=== PATIENT | female | born 1980 | race Asian ===

== ENCOUNTER 2022-11-05 12:30 | Outpatient (CLI) | payer BC, SELFPAY ==
[2022-11-05 13:26] LABS: Basophils Absolute Auto 0.1 K/mm3 (0.0-0.1); Basophils Percent Auto 0.6 % (0.2-1.2); Eosinophils Absolute Auto 0.1 K/mm3 (0-0.3); Eosinophils Percent Auto 0.7 % (0-4.4); Hematocrit 38.6 % (37.0-47.0); Hemoglobin 12.5 g/dL (12.0-15.0); Immature Granulocyte Absolute 0.07 K/mm3 (0.00-0.031); Immature Granulocyte Percent A 0.6 % (0-0.5); Lymphocytes Absolute Auto 2.64 K/mm3 (0.9-3.2); Lymphocytes Percent Auto 21.3 % (18.3-44.2); Mean Corpuscular HGB Conc 32.4 g/dl (32-36); Mean Corpuscular Hemoglobin 28.7 pg (26-34); Mean Corpuscular Volume 88.7 fl (80-100); Mean Platelet Volume 9.2 fl (7.4-10.4); Monocytes Absolute Auto 0.9 K/mm3 (0.1-0.6); Monocytes Percent Auto 7.5 % (2.6-8.5); Neutrophils Absolute Auto 8.6 K/mm3 (1.3-6.7); Neutrophils Percent Auto 69.3 % (45.5-73.1); Platelet Count Result 462 k/mm3 (150-375); Red Blood Count 4.35 M/mm3 (4.2-5.4); Red Cell Distribution Width 13.9 % (11.5-14.5); White Blood Count 12.4 K/mm3 (4.5-10.0)
[2022-11-05 13:36] LABS: Alanine Aminotransferase 29 U/L (6-35); Albumin Level 4.9 g/dL (3.5-5.1); Alkaline Phosphatase 47 U/L (38-126); Anion Gap 9 mmol/L (8-16); Aspartate Amino Transferase 27 U/L (14-36); Bilirubin,Total 0.4 mg/dL (0.2-1.3); Blood Urea Nitrogen 7 mg/dL (7-17); Calcium 9.3 mg/dL (8.4-10.2); Carbon Dioxide 24 mmol/L (22-30); Chloride 102 mmol/L (98-107); Estimated Glomerular Filt Rate > 60; Glucose 89 mg/dL (65-110); Potassium 3.7 mmol/L (3.4-5.0); Sodium 135 mmol/L (137-145)
[2022-11-05 13:37] LABS: Hemoglobin A1C 6.1 % (<5.7)
[2022-11-05 14:18] LABS: HIV 1/2 Ab P24 Ag Result Negative (Negative)
[2022-11-05 14:41] LABS: Hepatitis B Surface Antigen Negative (Negative)
[2022-11-05 16:19] LABS: Rapid Plasma Reagin Non-Reactive (NonReactive)
[2022-11-05 19:56] LABS: Rubella IgG Antibody > 110.0 IU/ML
== END 2022-11-05 12:31 | disposition home or self-care (01) ==
PROVIDERS: Visit Provider Obstetrics & Gynecology
DX: N94.89 Other specified conditions associated with female genital organs and menstrual cycle (principal); E11.9 Type 2 diabetes mellitus without complications
CPT/HCPCS: 36415; 80053; 83036; 84443; 84702; 85025; 86592; 86644; 86703; 86747; 86762; 86787; 86850; 86900; 86901; 87086; 87340; G0432

== ENCOUNTER 2022-11-07 15:46 | Outpatient (CLI) | payer BC, SELFPAY ==
[2022-11-07 16:27] LABS: Total Volume 24 Hour Urine 1250 ml
[2022-11-07 16:28] LABS: Total Volume 24 Hour Urine 1250 ml
[2022-11-07 16:39] LABS: Total Protein Urine 24 Hr 162 mg/24hr (28-141); Total Protein Urine Random 13 mg/dL
[2022-11-07 16:40] LABS: Creatinine 24 Hour Urine 0.6 gm/24 (0.8-1.8); Creatinine Urine 53.5 mg/dL
== END 2022-11-07 15:47 | disposition home or self-care (01) ==
LOC: ANHLAB 15:47
PROVIDERS: Visit Provider Obstetrics & Gynecology
DX: E11.9 Type 2 diabetes mellitus without complications (principal)
CPT/HCPCS: 81050; 82570; 84156

== ENCOUNTER 2023-04-29 21:01 | Observation (INO) | payer BC, MEDICAID, SELFPAY ==
[2023-04-29] VITALS (8 sets, daily range): BP systolic 130–156; BP diastolic 76–95; PULSE 70–84; RESP 18; TEMP 36.9; BMI 27.5
--- NOTE | ~2023-04-29 | US_ITS ---
EXAMINATION: US OB follow up w BPP DATE: 04/29/2023 19:50 INDICATION: Hypertension during third trimester TECHNIQUE: Real-time pelvic ultrasound was performed. The interpreting radiologist was not present fo r the study. COMPARISON: 04/16/2023 FINDINGS: There is a single living fetus in vertex presentation. The placenta is anterior. heart rate is 145 beats per minute (bpm). The amniotic fluid index is 13 cm which is normal (normal range: 8.1 cm t o 24.8 cm). Biophysical profile performed by the technologist: breathing (30 sec sustained breathing in 30 minutes): 2 out of 2 movement (3 gross body movements in 30 minutes): 2 out of 2 tone (one episode of eqebnmq-lsxxrlcmg-vhfprfd limb movement): 2 out of 2 Amniotic fluid pocket (2 cm): 2 out of 2 Total score: 8 out of 8 The following biometric data were obtained: Biparietal diameter (BPD): 8.9 cm; head circumference (HC): 32.3 cm; abdominal circumference (AC): 32 .5 cm; femur length (FL): 7.0 cm. These measurements are concordant. Estimated weight is 2817 g +/- 431 g, which correlates with the 94th percentile when 06/09/2023 is used as estimated date of delivery. As single measurements, these parameters are each equal to the following estimated gestational ages w ith ranges of +/- 2 standard deviations: BPD: 35 weeks 3 days +/- 3 weeks 1 days. HC: 36 weeks 4 days +/- 2 weeks 5 days. AC: 36 weeks 3 days +/- 3 weeks 0 days. FL: 36 weeks 0 days +/- 3 weeks 0 days. estimated gestational age based solely on measurements from this exam is 36 weeks 1 days +/- 2 weeks 4 days. IMPRESSION: 1. Single living fetus in vertex presentation. 2. Biophysical profile 8 out of 8. 3. Normal amniotic fluid index. 4. Estimated weight is 2817 g +/- 431 g, which correlates with the 94th percentile when 06/09/19 24 is used as estimated date of delivery. Reviewed, dictated and finalized at location F. IMPRESSION: 1. Single living fetus in vertex presentation. 2. Biophysical profile 8 out of 8. 3. Normal amniotic fluid index. 4. Estimated weight is 2817 g +/- 431 g, which correlates with the 94th p ercentile when 06/09/2023 is used as estimated date of delivery.
[2023-04-29 19:17] LABS: Appearance Urine Clear (Clear); Basophils Percent Auto 0.5 % (0.2-1.2); Bilirubin Urine Negative (Negative); Blood Urine Negative (Negative); Color Urine Yellow (Yellow); Eosinophils Absolute Auto 0.1 K/mm3 (0-0.3); Eosinophils Percent Auto 0.7 % (0-4.4); Glucose Urine UA Negative (Negative); Hematocrit 36.9 % (37.0-47.0); Hemoglobin 11.8 g/dL (12.0-15.0); Immature Granulocyte Absolute 0.07 K/mm3 (0.00-0.031); Immature Granulocyte Percent A 0.8 % (0-0.5); Ketones Urine Negative (Negative); Leukocyte Esterase Ur Negative LEU/UL (Negative); Lymphocytes Absolute Auto 2.28 K/mm3 (0.9-3.2); Lymphocytes Percent Auto 26.1 % (18.3-44.2); Mean Corpuscular Hemoglobin 28.9 pg (26-34); Mean Corpuscular Volume 90.4 fl (80-100); Monocytes Absolute Auto 0.8 K/mm3 (0.1-0.6); Neutrophils Absolute Auto 5.5 K/mm3 (1.3-6.7); Neutrophils Percent Auto 62.9 % (45.5-73.1); Nitrate Urine Negative (Negative); Platelet Count Result 282 k/mm3 (150-375); Protein Urine Negative (Negative); Red Blood Count 4.08 M/mm3 (4.2-5.4); Red Cell Distribution Width 14.5 % (11.5-14.5); Specific Grav Ur 1.011 (1.001-1.035); Urobilinogen Urine 0.2 mg/dL (<2.0); White Blood Count 8.8 K/mm3 (4.5-10.0)
[2023-04-29 19:23] LABS: Creatinine Urine 31.5 mg/dL; Total Protein Urine Random 16 mg/dL; Ur Ttl Prot Creatinine Ratio 0.51 mg/mg (0-0.20)
[2023-04-29 19:25] LABS: Add Urine Microscopic? NO
[2023-04-29 19:29] LABS: Alanine Aminotransferase 20 U/L (6-35); Albumin Level 3.7 g/dL (3.5-5.1); Alkaline Phosphatase 88 U/L (38-126); Anion Gap 4 mmol/L (8-16); Aspartate Amino Transferase 25 U/L (14-36); Bilirubin,Total 0.3 mg/dL (0.2-1.3); Blood Urea Nitrogen 9 mg/dL (7-17); Calcium 10.1 mg/dL (8.4-10.2); Carbon Dioxide 21 mmol/L (22-30); Chloride 108 mmol/L (98-107); Estimated Glomerular Filt Rate > 60; Glucose 92 mg/dL (65-110); Potassium 3.7 mmol/L (3.4-5.0); Sodium 133 mmol/L (137-145); Uric Acid 4.2 mg/dL (2.5-7.5)
--- NOTE | 2023-04-29 20:45 | PC.NURSE ---
Dr. Evans called with an update on pt, labs, and blood pressures. Orders received to monitor patient through the night, blood pressures every thirty minutes, GDM diet, blood sugars every four hours, initiate IV access, and continuous monitoring.
--- NOTE | 2023-04-29 20:55 | PM.IMHP ---
H&P: HPI History of Present Illness Date/Time: 04/29/23 20:55 Chief Complaint: elevated BP Narrative: Leticia is a 42yo @ 34.1wks who was sent to L&D after being seen in OB clinic. She was found to have moderate range BPs x2 in office. She reports being sick for the last 1.5wks and feeling very tired and weak and couldn't get out of bed. She has been having headaches. She reports good movement. No ctx, vb, lof. She denies CP, SOB, RUQ pain. Labs show urine P/C ratio or 0.51 today, her BPs on L&D have been 150/90s on L&D. Will plan to admit for further monitoring. Her is complicated by: - Class B DM -- diagnosed 2019; A1c 6.1 (10/2022) --> 7.6 (04/2023) -MFM referral; no-showed/refused care and mfm will no longer see her -pt refused insulin -MFM recommends EKG- ordered (02/18) - AMA; MFM referral-- needs ASA @ 12wks - Non-compliant with care - Pre-eclampsia--- P/C ratio 0.51 Review of Systems Constitutional: Constitutional: Denies chills, Denies fever(s) and Reports headache(s) Eyes: Eyes: Denies change in vision ENT: Reports headache(s) Cardiovascular: Cardiovascular: Denies chest pain and Denies dyspnea Respiratory: Respiratory: Denies dyspnea Gastrointestinal: Gastrointestinal: Denies abdominal pain Genitourinary: Genitourinary: Denies abnormal vaginal bleeding, Denies pelvic pain and Denies vaginal discharge Neurologic: Reports headache(s) Psychiatric: Psychiatric: Denies anxiety and Denies depression [facility] Past Medical History Medical History Gastroenteritis Social History Social History Smoking status: Never smoker Alcohol intake: never Substance use: never Lack of Transportation: No Lack of Food: Never True Current Housing: I Have Housing Concerned About Future Housing: Decline to Answer Difficulty Paying Gas/Electric Bills: Decline to Answer Difficulty Paying for Meds: Decline to Answer Currently Unemployed: Decline to Answer Education: Decline to Answer Difficulty w/ Childcare or Family Care: Decline to Answer Living arrangements: with family Additional living arrangements comments: alone Occupation/Education: occupation Gender identity (if verbalized by the patient): Female Sexual Orientation (if Verbalized by the Patient): Straight or Heterosexual Meds Home Medications and Allergies Home Medications Medication Instructions Recorded Confirmed Type vitamins no.119-iron 1 tablet PO DAILY #90 tabs 12/16/22 04/29/23 Rx fumarate 29 mg-folic acid 1 mg tablet ( 19) aspirin 81 mg tablet,delayed 81 mg PO DAILY 01/20/23 04/29/23 History release (Adult Low Dose Aspirin) Allergies Allergy/AdvReac Type Severity Reaction Status Date / Time No Known Allergies Allergy Verified 04/29/23 17:21 Vital Signs Vital Signs - 24 hr 04/29/23 20:08 04/29/23 20:30 Pulse Rate 70 84 Blood Pressure 130/81 156/94 H Exam Const: General: cooperative, healthy appearing, comfortable and no acute distress Nutritional Appearance: obese Orientation/consciousness: patient oriented x3 Resp: Effort & Inspection: normal respiratory effort Cardio: Rate: regular rate GI: GI Palp: No abdominal tenderness : Other: FHT's: 125's/ mod irvin/ + accels/ occasional mild variable decels - cat 2 TOCO: irregular ctx's Membranes: intact Presentation: cephalic Skin: General skin exam: normal color Neuro: General: patient oriented x3 Extrem: General: normal to inspection Psych: Appearance: grossly normal Affect: normal affect Attitude: cooperative H&P: Results Labs Labs: Short CBC 04/29/23 Range/Units 18:57 WBC 8.8 (4.5-10.0) K/mm3 Hgb 11.8 L (12.0-15.0) g/dL Hct 36.9 L (37.0-47.0) % Plt Count 282 (150-375) k/mm3 BMP 04/29/23 18:57 Sodium 133 L Potassium 3.7 Chloride
[2023-04-29 23:04] LABS: Glucose Point of Care 134 mg/dl (65-105)
--- NOTE | 2023-04-29 23:07 | PC.NURSE ---
Called Dr. Evans to update on contractions, pt states she feels some contractions, no pain. Orders received to continue to monitor pt at this time.
[2023-04-30] VITALS (22 sets, daily range): BP systolic 115–138; BP diastolic 61–80; PULSE 64–77; RESP 16–18; TEMP 36.8–37.1
[2023-04-30 01:52] LABS: Influenza A QL RT-PCR Negative (Negative); Influenza B QL RT-PCR Negative (Negative); RSV RNA, RT-PCR Negative (Negative); SARS-CoV-2 RNA PCR Negative (Negative)
[2023-04-30 03:17] LABS: Glucose Point of Care 98 mg/dl (65-105)
--- NOTE | 2023-04-30 05:25 | PC.NURSE ---
Dr. Evans discussed plan of care with pt, schedule induction on 05/18, NST's twice weekly, and follow-up appointment in the office next week. Orders received to discharge pt after eating this morning aroun 0900.
--- NOTE | 2023-04-30 05:33 | PM.OBPNVD ---
OB - PN: Subj Subjective Date/time seen: 04/30/23 05:25 Narrative: No issues overnight. BPs still in moderate range overnight. Feeling good movements. No ctx, vb, lof. No ARNDT, vision changes, CP, SOB. OB - PN: Obj Data Labs 04/29/23 18:57 04/29/23 18:57 Labs: Laboratory Results - last 24 hr 04/29/23 04/29/23 04/30/23 18:57 23:00 01:02 WBC 8.8 RBC 4.08 L Hgb 11.8 L Hct 36.9 L MCV 90.4 MCH 28.9 MCHC 32.0 RDW 14.5 Plt Count 282 MPV 10.0 Immature Gran % (Auto) 0.8 H Neut % (Auto) 62.9 Lymph % (Auto) 26.1 [place] % (Auto) 9.0 H Eos % (Auto) 0.7 Baso % (Auto) 0.5 Lymph # (Auto) 2.28 [place] # (Auto) 0.8 H Eos # (Auto) 0.1 Baso # (Auto) 0.0 Abs Immat Gran (auto) 0.07 H Absolute Neuts (auto) 5.5 Absolute Nucleated RBC 0.000 Nucleated RBC % 0.0 Sodium 133 L Potassium 3.7 Chloride 108 H Carbon Dioxide 21 L Anion Gap 4 L BUN 9 Creatinine 0.40 L Estim Creat Clear Calc Not Reportable Estimated GFR > 60 Glucose 92 POC Capillary Glucose 134 H Uric Acid 4.2 Calcium 10.1 Total Bilirubin 0.3 AST 25 ALT 20 Alkaline Phosphatase 88 Total Protein 7.0 Albumin 3.7 Urine Color Yellow Urine Appearance Clear Urine pH 7.0 Ur Specific [place] 1.011 Urine Protein Negative Urine Glucose (UA) Negative Urine Ketones Negative Ur Blood (Man) Negative Urine Nitrate Negative Urine Bilirubin Negative Urine Urobilinogen 0.2 Leukocyte Esterase Rfl Negative U Random Total Protein 16 Urine Creatinine 31.5 Protein/Creat Ratio 2 0.51 H Influenza A (RT-PCR) Negative Influenza B (RT-PCR) Negative RSV (RT-PCR) Negative SARS-CoV-2 RNA (RT-PCR) Negative 04/30/23 03:11 WBC RBC Hgb Hct MCV MCH MCHC RDW Plt Count MPV Immature Gran % (Auto) Neut % (Auto) Lymph % (Auto) [place] % (Auto) Eos % (Auto) Baso % (Auto) Lymph # (Auto) [place] # (Auto) Eos # (Auto) Baso # (Auto) Abs Immat Gran (auto) Absolute Neuts (auto) Absolute Nucleated RBC Nucleated RBC % Sodium Potassium Chloride Carbon Dioxide Anion Gap BUN Creatinine Estim Creat Clear Calc Estimated GFR Glucose POC Capillary Glucose 98 Uric Acid Calcium Total Bilirubin AST ALT Alkaline Phosphatase Total Protein Albumin Urine Color Urine Appearance Urine pH Ur Specific [place] Urine Protein Urine Glucose (UA) Urine Ketones Ur Blood (Man) Urine Nitrate Urine Bilirubin Urine Urobilinogen Leukocyte Esterase Rfl U Random Total Protein Urine Creatinine Protein/Creat Ratio 2 Influenza A (RT-PCR) Influenza B (RT-PCR) RSV (RT-PCR) SARS-CoV-2 RNA (RT-PCR) Imaging Radiologist's impression: Impressions Obstetrical Follow-Up 04/29/23 20:06 IMPRESSION: 1. Single living fetus in vertex presentation. 2. Biophysical profile 8 out of 8. 3. Normal amniotic fluid index. 4. Estimated weight is 2817 g +/- 431 g, which correlates with the 94th percentile when 06/09/2023 is used as estimated date of delivery. OB - PN A/P Assessment and Plan (1) Pre-eclampsia: Qualifiers: Trimester: third trimester Qualified Code(s): O14.93 - Unspecified pre-eclampsia, third trimester Code(s): O14.90 - Unspecified pre-eclampsia, unspecified trimester Status: Acute Assessment and Plan: - BPs noted to be in the moderate range, no severe range - labs stable, except urine P/C ratio of 0.51 - Pt currently asymptomatic - will once again will set up twice weekly NST w/ weekly BPP/labs (to come on Thursday for NST/labs, for NST/BPP)-- discussed the importance of monitoring her and baby VERY closely until IOL on 05/19/23 (cervidil followed by low dose pitocin)-- pt voiced understanding and that she is worried about her blood pressure and will for sure come to all appts - wi
--- NOTE | 2023-04-30 08:32 | OBADM ---
This patient, Leticia Dolan, admitted to the OB room OB Post 116 for observation. Patient/family oriented to hospital policies and general routines including ID bracelet, bed and alarms, visiting hours, pain management, procedures, bathroom and other care routines, personal items, smoking policy, room service/diet, and visiting hours. Patient/Family are encouraged to report perceived risks to care and to ask questions if they do not understand what they are told or what they should do.
[2023-04-30 09:39] LABS: Glucose Point of Care 92 mg/dl (65-105)
[2023-04-30 10:51] LABS: Glucose Point of Care 102 mg/dl (65-105)
--- NOTE | 2023-05-03 08:31 | PM.OBTRLD ---
OB - Triage/Final Diagnosis Visit Information Comments/Additional reasons for admission: I have assessed the risk for this patient, Leticia Dolan, and determined that she would benefit from observation care. Evaluation Laboratory results: Laboratory Tests 04/29/23 04/29/23 04/30/23 18:57 23:00 01:02 WBC 8.8 RBC 4.08 L Hgb 11.8 L Hct 36.9 L MCV 90.4 MCH 28.9 MCHC 32.0 RDW 14.5 Plt Count 282 MPV 10.0 Immature Gran % (Auto) 0.8 H Neut % (Auto) 62.9 Lymph % (Auto) 26.1 [place] % (Auto) 9.0 H Eos % (Auto) 0.7 Baso % (Auto) 0.5 Lymph # (Auto) 2.28 [place] # (Auto) 0.8 H Eos # (Auto) 0.1 Baso # (Auto) 0.0 Abs Immat Gran (auto) 0.07 H Absolute Neuts (auto) 5.5 Absolute Nucleated RBC 0.000 Nucleated RBC % 0.0 Sodium 133 L Potassium 3.7 Chloride 108 H Carbon Dioxide 21 L Anion Gap 4 L BUN 9 Creatinine 0.40 L Estim Creat Clear Calc Not Reportable Estimated GFR > 60 Glucose 92 POC Capillary Glucose 134 H Uric Acid 4.2 Calcium 10.1 Total Bilirubin 0.3 AST 25 ALT 20 Alkaline Phosphatase 88 Total Protein 7.0 Albumin 3.7 Urine Color Yellow Urine Appearance Clear Urine pH 7.0 Ur Specific [place] 1.011 Urine Protein Negative Urine Glucose (UA) Negative Urine Ketones Negative Ur Blood (Man) Negative Urine Nitrate Negative Urine Bilirubin Negative Urine Urobilinogen 0.2 Leukocyte Esterase Rfl Negative U Random Total Protein 16 Urine Creatinine 31.5 Protein/Creat Ratio 2 0.51 H Influenza A (RT-PCR) Negative Influenza B (RT-PCR) Negative RSV (RT-PCR) Negative SARS-CoV-2 RNA (RT-PCR) Negative 04/30/23 04/30/23 04/30/23 03:11 07:11 09:42 WBC RBC Hgb Hct MCV MCH MCHC RDW Plt Count MPV Immature Gran % (Auto) Neut % (Auto) Lymph % (Auto) [place] % (Auto) Eos % (Auto) Baso % (Auto) Lymph # (Auto) [place] # (Auto) Eos # (Auto) Baso # (Auto) Abs Immat Gran (auto) Absolute Neuts (auto) Absolute Nucleated RBC Nucleated RBC % Sodium Potassium Chloride Carbon Dioxide Anion Gap BUN Creatinine Estim Creat Clear Calc Estimated GFR Glucose POC Capillary Glucose 98 92 102 Uric Acid Calcium Total Bilirubin AST ALT Alkaline Phosphatase Total Protein Albumin Urine Color Urine Appearance Urine pH Ur Specific [place] Urine Protein Urine Glucose (UA) Urine Ketones Ur Blood (Man) Urine Nitrate Urine Bilirubin Urine Urobilinogen Leukocyte Esterase Rfl U Random Total Protein Urine Creatinine Protein/Creat Ratio 2 Influenza A (RT-PCR) Influenza B (RT-PCR) RSV (RT-PCR) SARS-CoV-2 RNA (RT-PCR) Final Diagnosis (1) Pre-eclampsia: Qualifiers: Trimester: third trimester Qualified Code(s): O14.93 - Unspecified pre-eclampsia, third trimester Code(s): O14.90 - Unspecified pre-eclampsia, unspecified trimester Status: Acute (2) Advanced maternal age (AMA) in : Status: Acute (3) Type 2 diabetes mellitus: Qualifiers: Diabetes mellitus fdc insulin use: unspecified fdc insulin use status Code(s): E11.9 - Type 2 diabetes mellitus without complications Status: Acute
== END 2023-04-30 12:39 | disposition home or self-care (01) ==
LOC: ANHOBPP 04-30 08:27 → ANHOBOP 04-30 08:28 → ANHOBPP 04-30 08:28 → ANHLDR 04-30 12:42
PROVIDERS: Admitting Provider Obstetrics & Gynecology; Visit Provider Obstetrics & Gynecology
DX: O14.93 Unspecified pre-eclampsia, third trimester (principal); O09.523 Supervision of elderly multigravida, third trimester; O24.113 Pre-existing type 2 diabetes mellitus, in pregnancy, third trimester; Z3A.34 34 weeks gestation of pregnancy; Z20.822 Contact with and (suspected) exposure to COVID-19
CPT/HCPCS: 36415; 76816; 76819; 80053; 82570; 82948; 84156; 84550; 85025; 87637; 99199; G0378; G0379

== ENCOUNTER 2023-05-15 10:00 | Outpatient (RCR) | payer BC, MEDICAID, SELFPAY ==
[2023-04-16 17:08] LABS: Basophils Percent Auto 0.3 % (0.2-1.2); Eosinophils Percent Auto 0.5 % (0-4.4); Hematocrit 38.1 % (37.0-47.0); Hemoglobin 12.3 g/dL (12.0-15.0); Immature Granulocyte Absolute 0.07 K/mm3 (0.00-0.031); Immature Granulocyte Percent A 0.9 % (0-0.5); Lymphocytes Absolute Auto 1.64 K/mm3 (0.9-3.2); Lymphocytes Percent Auto 20.5 % (18.3-44.2); Mean Corpuscular HGB Conc 32.3 g/dl (32-36); Mean Corpuscular Hemoglobin 28.9 pg (26-34); Mean Corpuscular Volume 89.4 fl (80-100); Mean Platelet Volume 9.3 fl (7.4-10.4); Monocytes Absolute Auto 0.6 K/mm3 (0.1-0.6); Neutrophils Absolute Auto 5.7 K/mm3 (1.3-6.7); Neutrophils Percent Auto 70.8 % (45.5-73.1); Platelet Count Result 355 k/mm3 (150-375); Red Blood Count 4.26 M/mm3 (4.2-5.4); Red Cell Distribution Width 14.4 % (11.5-14.5)
[2023-04-16 17:23] LABS: Alanine Aminotransferase 17 U/L (6-35); Albumin Level 3.8 g/dL (3.5-5.1); Alkaline Phosphatase 82 U/L (38-126); Anion Gap 8 mmol/L (8-16); Aspartate Amino Transferase 21 U/L (14-36); Bilirubin,Total 0.3 mg/dL (0.2-1.3); Blood Urea Nitrogen 5 mg/dL (7-17); Calcium 9.1 mg/dL (8.4-10.2); Carbon Dioxide 19 mmol/L (22-30); Chloride 105 mmol/L (98-107); Estimated Glomerular Filt Rate > 60; Glucose 290 mg/dL (65-110); Potassium 3.5 mmol/L (3.4-5.0); Sodium 132 mmol/L (137-145)
[2023-04-16 17:45] VITALS: BP 111/67; PULSE 82
[2023-04-16 18:04] LABS: HIV 1/2 Ab P24 Ag Result Negative (Negative)
[2023-04-16 22:49] LABS: Hemoglobin A1C 7.6 % (<5.7)
[2023-05-05 09:25] LABS: Basophils Absolute Auto 0.1 K/mm3 (0.0-0.1); Basophils Percent Auto 0.7 % (0.2-1.2); Eosinophils Absolute Auto 0.1 K/mm3 (0-0.3); Hematocrit 38.9 % (37.0-47.0); Hemoglobin 12.3 g/dL (12.0-15.0); Immature Granulocyte Absolute 0.03 K/mm3 (0.00-0.031); Immature Granulocyte Percent A 0.4 % (0-0.5); Lymphocytes Absolute Auto 1.71 K/mm3 (0.9-3.2); Lymphocytes Percent Auto 23.6 % (18.3-44.2); Mean Corpuscular HGB Conc 31.6 g/dl (32-36); Mean Corpuscular Hemoglobin 28.5 pg (26-34); Mean Corpuscular Volume 90.3 fl (80-100); Monocytes Absolute Auto 0.7 K/mm3 (0.1-0.6); Monocytes Percent Auto 9.2 % (2.6-8.5); Neutrophils Absolute Auto 4.7 K/mm3 (1.3-6.7); Neutrophils Percent Auto 65.1 % (45.5-73.1); Platelet Count Result 328 k/mm3 (150-375); Red Blood Count 4.31 M/mm3 (4.2-5.4); Red Cell Distribution Width 14.3 % (11.5-14.5); White Blood Count 7.3 K/mm3 (4.5-10.0)
[2023-05-05 09:37] LABS: Alanine Aminotransferase 18 U/L (6-35); Albumin Level 3.8 g/dL (3.5-5.1); Alkaline Phosphatase 95 U/L (38-126); Anion Gap 9 mmol/L (8-16); Aspartate Amino Transferase 31 U/L (14-36); Bilirubin,Total 0.3 mg/dL (0.2-1.3); Blood Urea Nitrogen 10 mg/dL (7-17); Carbon Dioxide 17 mmol/L (22-30); Chloride 109 mmol/L (98-107); Estimated Glomerular Filt Rate > 60; Glucose 123 mg/dL (65-110); Potassium 3.8 mmol/L (3.4-5.0); Sodium 135 mmol/L (137-145); Uric Acid 4.9 mg/dL (2.5-7.5)
--- NOTE | 2023-05-05 10:05 | PC.NURSE ---
Dr. Evans returned call. Informed of BPs, and tracing update. Labs reviewed in office. June D/C home.
[2023-05-05 10:06] VITALS: BP 121/61; PULSE 69
[2023-05-08 13:05] VITALS: BP 124/70; PULSE 75
--- NOTE | ~2023-05-15 | US_ITS ---
EXAMINATION: US OB follow up w BPP DATE: 05/15/2023 12:03 INDICATION: Assess growth, amniotic fluid index and biophysical profile during third trimester . TECHNIQUE: Real-time pelvic ultrasound was performed. The interpreting radiologist was not present fo r the study. COMPARISON: None. FINDINGS: There is a single living fetus in vertex presentation. The placenta is anterior. heart rate is 152 beats per minute (bpm). Normal amniotic fluid index of 18.8 cm (5th%-95%: 7.7-24.9 cm at 36 week s estimated gestational age). Biophysical profile performed by the technologist: breathing (30 sec sustained breathing in 30 minutes): 2 out of 2 movement (3 gross body movements in 30 minutes): 2 out of 2 tone (one episode of bojbora-gmfwcsfoo-czhevuh limb movement): 2 out of 2 Amniotic fluid pocket (2 cm): 2 out of 2 Total score: 8 out of 8 IMPRESSION: 1. Single living fetus in vertex presentation with heart rate of 152 bpm. 2. Biophysical profile 8 out of 8. 3. Normal amniotic fluid index of 18.8 cm. Reviewed, dictated and finalized at location A.
--- NOTE | ~2023-05-15 | US_ITS ---
EXAMINATION: US OB BPP wo non-stress DATE: 04/16/2023 17:43 INDICATION: Diabetes. Third trimester. TECHNIQUE: Real-time pelvic ultrasound was performed. COMPARISON: Ultrasound 10/22/2022 FINDINGS: There is a single living fetus in vertex presentation. The placenta is anterior. heart rate is 138 beats per minute (bpm). Biophysical profile performed by the technologist: breathing (30 sec sustained breathing in 30 minutes): 2 out of 2 movement (3 gross body movements in 30 minutes): 2 out of 2 tone (one episode of ueibgqc-gvfenzmhl-ghugrrw limb movement): 2 out of 2 Amniotic fluid pocket (2 cm): 2 out of 2 Total score: 8 out of 8 IMPRESSION: 1. Single living fetus in vertex presentation. 2. Biophysical profile 8 out of 8. Reviewed, dictated and finalized at location E. S [employer]
--- NOTE | ~2023-05-15 | US_ITS ---
EXAMINATION: US OB BPP wo non-stress DATE: 05/08/2023 13:03 INDICATION: Diabetes during third trimester TECHNIQUE: Real-time pelvic ultrasound was performed. The interpreting radiologist was not present fo r the study. COMPARISON: 04/29/2023 FINDINGS: There is a single living fetus in vertex presentation. The placenta is anterior. heart rate is 133 beats per minute (bpm). Biophysical profile performed by the technologist: breathing (30 sec sustained breathing in 30 minutes): 2 out of 2 movement (3 gross body movements in 30 minutes): 2 out of 2 tone (one episode of frxbpor-xnkoofbvi-rcshkpf limb movement): 2 out of 2 Amniotic fluid pocket (2 cm): 2 out of 2 Total score: 8 out of 8 IMPRESSION: 1. Single living fetus in vertex presentation. 2. Biophysical profile 8 out of 8. Reviewed, dictated and finalized at location A.
[2023-05-15 11:11] LABS: Basophils Percent Auto 0.5 % (0.2-1.2); Eosinophils Absolute Auto 0.1 K/mm3 (0-0.3); Eosinophils Percent Auto 0.6 % (0-4.4); Hematocrit 38.1 % (37.0-47.0); Hemoglobin 12.2 g/dL (12.0-15.0); Immature Granulocyte Absolute 0.04 K/mm3 (0.00-0.031); Immature Granulocyte Percent A 0.5 % (0-0.5); Lymphocytes Absolute Auto 1.75 K/mm3 (0.9-3.2); Lymphocytes Percent Auto 21.6 % (18.3-44.2); Mean Corpuscular Volume 90.5 fl (80-100); Monocytes Absolute Auto 0.7 K/mm3 (0.1-0.6); Neutrophils Absolute Auto 5.6 K/mm3 (1.3-6.7); Neutrophils Percent Auto 68.8 % (45.5-73.1); Platelet Count Result 283 k/mm3 (150-375); Red Blood Count 4.21 M/mm3 (4.2-5.4); Red Cell Distribution Width 14.6 % (11.5-14.5); White Blood Count 8.1 K/mm3 (4.5-10.0)
[2023-05-15 11:45] LABS: Alanine Aminotransferase 13 U/L (6-35); Albumin Level 3.6 g/dL (3.5-5.1); Alkaline Phosphatase 99 U/L (38-126); Anion Gap 5 mmol/L (4-12); Aspartate Amino Transferase 22 U/L (14-36); Bilirubin,Total 0.3 mg/dL (0.2-1.3); Blood Urea Nitrogen 11 mg/dL (7-17); Calcium 9.5 mg/dL (8.4-10.2); Carbon Dioxide 22 mmol/L (22-30); Chloride 105 mmol/L (98-107); Estimated Glomerular Filt Rate > 60; Glucose 134 mg/dL (65-110); Potassium 3.8 mmol/L (3.4-5.0); Sodium 132 mmol/L (137-145); Uric Acid 4.9 mg/dL (2.5-7.5)
[2023-05-15 12:15] VITALS: BP 133/77; PULSE 85
== END 2023-05-28 15:32 | disposition home or self-care (01) ==
LOC: ANHOBOP 10:00
PROVIDERS: Visit Provider Obstetrics & Gynecology
DX: Z11.4 Encounter for screening for human immunodeficiency virus [HIV] (principal); O24.419 Gestational diabetes mellitus in pregnancy, unspecified control; Z3A.00 Weeks of gestation of pregnancy not specified
CPT/HCPCS: 36415; 59025; 76816; 76819; 80053; 83036; 84550; 85025; 86703; G0432

== ENCOUNTER 2023-05-19 05:55 | Inpatient (IN) | payer BC, MEDICAID, SELFPAY ==
[2023-05-19] VITALS (189 sets, daily range): BP systolic 101–184; BP diastolic 30–128; PULSE 62–180; RESP 14–18; TEMP 36.3–36.9; O2SAT 74–100; BMI 28.9
--- NOTE | 2023-05-19 06:24 | P.PNAN_ITS ---
Anes - Eval Pre Procedure Procedure: LABOR EPIDURAL Date/Time: 05/19/23 06:24 Surgeon: WENCESLAO Preop Diagnosis: PAIN DURING LABOR Pre Op Diagnosis: IOL Patient Data Age: 42 Gender: F Height: Weight: Allergies Allergy/AdvReac Type Severity Reaction Status Date / Time No Known Allergies Allergy Verified 05/13/23 15:04 Home Medications Medication Instructions Recorded Confirmed Type vitamins no.119-iron 1 tablet PO DAILY #90 tabs 12/16/22 05/13/23 Rx fumarate 29 mg-folic acid 1 mg tablet ( 19) aspirin 81 mg tablet,delayed 81 mg PO DAILY 01/20/23 05/13/23 History release (Adult Low Dose Aspirin) Patient hx anesthesia problems: none Family hx anesthesia problems: none Results Review: All pre-operative results and documents have been reviewed as part of the pre- operative evaluation. [facility] Past Medical History Medical History Gastroenteritis Family History Family History (Updated 05/15/23 @ 10:42 by Henna Lui RN) Father Heart disease Social History Social History Smoking status: Never smoker Alcohol intake: never Substance use: never Lack of Transportation: No Lack of Food: Never True Current Housing: I Have Housing Concerned About Future Housing: Decline to Answer Difficulty Paying Gas/Electric Bills: Decline to Answer Difficulty Paying for Meds: Decline to Answer Currently Unemployed: Decline to Answer Education: Decline to Answer Difficulty w/ Childcare or Family Care: Decline to Answer Living arrangements: with family Additional living arrangements comments: alone Occupation/Education: occupation Gender identity (if verbalized by the patient): Female Sexual Orientation (if Verbalized by the Patient): Straight or Heterosexual Spiritual care concerns: No Exam Day of Procedure 05/19/23 06:24
[2023-05-19 06:40] LABS: Basophils Absolute Auto 0.1 K/mm3 (0.0-0.1); Basophils Percent Auto 0.7 % (0.2-1.2); Eosinophils Absolute Auto 0.1 K/mm3 (0-0.3); Eosinophils Percent Auto 1.4 % (0-4.4); Hematocrit 38.9 % (37.0-47.0); Hemoglobin 12.5 g/dL (12.0-15.0); Immature Granulocyte Absolute 0.07 K/mm3 (0.00-0.031); Immature Granulocyte Percent A 0.8 % (0-0.5); Lymphocytes Percent Auto 23.9 % (18.3-44.2); Mean Corpuscular HGB Conc 32.1 g/dl (32-36); Mean Corpuscular Hemoglobin 29.1 pg (26-34); Mean Corpuscular Volume 90.7 fl (80-100); Mean Platelet Volume 9.9 fl (7.4-10.4); Monocytes Absolute Auto 0.8 K/mm3 (0.1-0.6); Monocytes Percent Auto 9.8 % (2.6-8.5); Neutrophils Absolute Auto 5.3 K/mm3 (1.3-6.7); Neutrophils Percent Auto 63.4 % (45.5-73.1); Nucleated Red Blood Cells Perc 0.4 % (0.0-0.2); Platelet Count Result 259 k/mm3 (150-375); Red Blood Count 4.29 M/mm3 (4.2-5.4); Red Cell Distribution Width 14.7 % (11.5-14.5); White Blood Count 8.4 K/mm3 (4.5-10.0)
--- NOTE | 2023-05-19 06:43 | PM.IMHP ---
H&P: HPI History of Present Illness Date/Time: 05/19/23 06:43 Chief Complaint: Induction of labor Narrative: Leticia is a 42yo @ 37.0wks admitted for IOL due to pre-eclampsia w/o severe features. She also has class B DM that is not controlled. She had previously been referred to [facility] but declined any interventions, including insulin and was fired from their practice. In her third trimester, she has done ANT approximately once per week. She recently had a growth scan showing EFW ~47%ile. Her is complicated by: - Class B DM -- diagnosed 2019; A1c 6.1 (10/2022) --> 7.6 (04/2023) -MFM referral -pt refused insulin -[facility] recommends EKG- ordered (02/18) -growth scans per [facility] - AMA; MF referral-- needs ASA @ 12wks - Non-compliant with care, appt/ANT - Pre-eclampsia w/o SF Review of Systems Constitutional: Constitutional: Denies chills, Denies fever(s) and Denies headache(s) Eyes: Eyes: Denies change in vision ENT: Denies headache(s) Cardiovascular: Cardiovascular: Denies chest pain and Denies dyspnea Respiratory: Respiratory: Denies dyspnea Genitourinary: Genitourinary: Denies abnormal vaginal bleeding and Denies vaginal discharge Neurologic: Denies headache(s) Psychiatric: Psychiatric: Denies anxiety and Denies depression [facility] Past Medical History Medical History Gastroenteritis Family History Family History (Updated 05/15/23 @ 10:42 by Henna Lui RN) Father Heart disease Social History Social History Smoking status: Never smoker Alcohol intake: never Substance use: never Do You Feel Safe in your Home?: Yes Lack of Transportation: No Lack of Food: Never True Current Housing: I Have Housing Concerned About Future Housing: No Difficulty Paying Gas/Electric Bills: No Difficulty Paying for Meds: No Currently Unemployed: No Education: High School Diploma/GED Difficulty w/ Childcare or Family Care: No Living arrangements: with family Additional living arrangements comments: alone Occupation/Education: occupation Gender identity (if verbalized by the patient): Female Sexual Orientation (if Verbalized by the Patient): Straight or Heterosexual Spiritual care concerns: No Meds Home Medications and Allergies Home Medications Medication Instructions Recorded Confirmed Type vitamins no.119-iron 1 tablet PO DAILY #90 tabs 12/16/22 05/19/23 Rx fumarate 29 mg-folic acid 1 mg tablet ( 19) aspirin 81 mg tablet,delayed 81 mg PO DAILY 01/20/23 05/19/23 History release (Adult Low Dose Aspirin) Allergies Allergy/AdvReac Type Severity Reaction Status Date / Time No Known Allergies Allergy Verified 05/19/23 06:32 Vital Signs Vital Signs - 24 hr 05/19/23 06:35 Oxygen Delivery Room Air Exam Const: General: cooperative, healthy appearing, comfortable and no acute distress Orientation/consciousness: patient oriented x3 Resp: Effort & Inspection: normal respiratory effort Cardio: Rate: regular rate GI: GI Palp: No abdominal tenderness : Other: FHT's: 130's/ mod irvin/ + accels/ no decels - cat 1 TOCO: ctxs q2-5min Cervix: 4/50/-2 Membranes: AROM, clear 0715 Presentation: cephalic Skin: General skin exam: normal color Neuro: General: patient oriented x3 Extrem: General: normal to inspection Psych: Appearance: grossly normal Affect: normal affect Attitude: cooperative H&P: Results Labs Labs: Short CBC 05/19/23 Range/Units 06:33 WBC 8.4 (4.5-10.0) K/mm3 Hgb 12.5 (12.0-15.0) g/dL Hct 38.9 (37.0-47.0) % Plt Count 259 (150-375) k/mm3 Assessment and Plan Assessment and plan (1) Pre-eclampsia: Qualifiers: Trimester: third trimester Qualified Code(s): O14.93 - Unspecified pre-eclampsia, third trimester Code(s): O14.
[2023-05-19 06:55] LABS: Alanine Aminotransferase 15 U/L (6-35); Albumin Level 3.8 g/dL (3.5-5.1); Alkaline Phosphatase 113 U/L (38-126); Anion Gap 8 mmol/L (4-12); Aspartate Amino Transferase 30 U/L (14-36); Bilirubin,Total 0.3 mg/dL (0.2-1.3); Blood Urea Nitrogen 9 mg/dL (7-17); Calcium 9.5 mg/dL (8.4-10.2); Carbon Dioxide 19 mmol/L (22-30); Chloride 107 mmol/L (98-107); Estimated CRCL calculation 146 ml/min; Estimated Glomerular Filt Rate > 60; Glucose 107 mg/dL (65-110); Sodium 134 mmol/L (137-145); Uric Acid 5.1 mg/dL (2.5-7.5)
[2023-05-19] MEDS: OXYTOCIN 30 UNITS/NS 500 ML 30 UNITS/500 ML BAG IV CONT (07:15)
[2023-05-19] MEDS: LACTATED RINGERS 1,000 ML 125 ML IV CONT ×3 (07:15→17:45)
[2023-05-19 09:28] LABS: Glucose Point of Care 178 mg/dl (65-105)
[2023-05-19 09:28] LABS: Glucose Point of Care 164 mg/dl (65-105)
[2023-05-19] MEDS: LABETALOL HCL INJ 100 MG/20 ML VIAL 20 MG IV PUSH ×2 (10:08→11:28)
[2023-05-19] MEDS: MAGNESIUM SULF 20GM/WATER500ML 500 ML 300 MG IV CONT (11:21)
[2023-05-19] MEDS: INSULIN ASPART (*BKC) 100 UNITS/ML SUB-Q (11:42)
[2023-05-19 11:44] LABS: Glucose Point of Care 142 mg/dl (65-105)
[2023-05-19] MEDS: MAGNESIUM SULF 20GM/WATER500ML 500 ML 50 MG IV CONT ×2 (11:56→18:07)
--- NOTE | 2023-05-19 12:10 | PM.OBPNLAB ---
Pain Control Date/time seen: 05/19/23 12:10 Pain control: epidural Pelvic Exam Dilation (cm): 4 (.5) Effacement (%): 90 station: -2 Amniotic membrane status: Ruptured Contractions Monitor mode: Internal (placed this exam) Contraction frequency: 5 Contraction pattern: Regular Status status: Category ll Comments: occasional late/variable--- good variability with accelerations Assessment and Plan Pitocin rate (mU/min): 10 Assessment: induction ongoing Plan: continuous present management Comments: - pt noted to have multiple severe range BPs that required treatment with labetalol; now on magnesium sulfate for seizure ppx - BS elevated; getting sliding scale insulin; BS q2h
[2023-05-19 13:05] LABS: Rapid Plasma Reagin Non-Reactive (NonReactive)
[2023-05-19 13:54] LABS: Glucose Point of Care 95 mg/dl (65-105)
[2023-05-19 15:52] LABS: Glucose Point of Care 85 mg/dl (65-105)
[2023-05-19] MEDS: miSOPROStol 200 MCG TABLET 800 MCG (17:56)
--- NOTE | 2023-05-19 18:10 | P.PCNOB_ITS ---
OB - Vaginal Delivery Note Procedure Delivery date: 05/19/23 Events: Diabetes Mellitus (class B, uncontrolled) and Preeclampsia w severe features Induction method: Per Pitocin Protocol Delivery augmentation: Rupture of Membranes Delivery monitor: External FHT and Internal Uterine Route of delivery: Indication for instrumentation: maternal exhaustion (vacuum was used to rotate the head x1) Laceration Description: None Specimen: Yes (placenta) Quantitative Blood Loss (ml): 400 Anesthesia type: Epidural Disposition: Floor Complications: No immediate complications Baby Date of : 05/19/23 Time of : 17:51 Weeks of gestation at delivery: 37 gender: Male Weight (pounds): 9 Weight (ounces): 3 presentation: vertex position: Left Occiput Posterior Placenta delivery description: Expressed Cord Vessel Description: 3 Vessels score one minute: 7 score five minutes: 9 Narrative: Leticia pushed for approximally any an hour and began to endorse exhaustion. The head was found to be asynclitic and she was counseled on vacuum. Pediatric team was advised and was present. The vacuum was applied and during her next 3 pushes, 3 pulls were performed and 1 pop-off did occur. The head was then noted to rotate and she pushed for approximately 6 more contractions with good maternal effort and delivered the head over intact perineum. Turtle sign was noted the anterior shoulder (right shoulder) was noted to be behind the pubic bone. Roni and suprapubic pressure were performed and the shoulder then delivered. The shoulder dystocia was less than 30 seconds. The infant delivered and was immediately placed skin to skin. The umbilical cord was then immediately doubly clamped and cut. The was then taken over to the warmer to be evaluated by the pediatric team. A segment of the cord was collected for cord gases. Remaining cord blood was collected for typing. With Pitocin running and gentle downward traction on the cord, the placenta delivered without complications. Bimanual massage was performed and good uterine tone with minimal bleeding was noted. She was examined and no lacerations were identified. Cytotec 800 mcg was placed rectally to prevent excessive bleeding. Sponge, lap, instrument, and needle counts were correct at the end of the procedure. Mom and baby were left bonding in the birthing suite in a stable condition. The baby was examined and was found to have no fractures, he did have a small bruise on the left arm but was moving all extremities in a normal manner per the primer inserting machine operator. [facility] Delivery Billing Delivery Delivery: Delivery Charge
[2023-05-19] MEDS: OXYTOCIN 30 UNITS/NS 500 ML 30 UNITS/500 ML BAG 125 UNITS IV CONT ×2 (18:25→19:15)
[2023-05-19] MEDS: IBUPROFEN 600 MG TABLET PO (19:02)
--- NOTE | 2023-05-19 20:20 | OBPPTRN ---
Patient transferred to post room #292 via wheelchair. Oriented to unit, room, information board, rooming in, admission packet and security measures. Patient verbalizes understanding. Baby currently in 1st floor nursery- pending upstairs transfer.
[2023-05-19 21:02] LABS: Glucose Point of Care 119 mg/dl (65-105)
--- NOTE | 2023-05-19 21:10 | PC.NURSE ---
2110- educated patient on importance of calling out prior to feeding in order for baby to get blood sugar checked. Mother stated understanding as well as the desire to bottle feed only at this time for cultural reasons but that ultimate goal is to breastfeed baby.
--- NOTE | 2023-05-19 22:30 | PC.NURSE ---
2230- Patient had IV fluids running of LR at 125cc/hr, Magnesium Sulfate at 50cc/hr and Pitocin at 75cc/hr. LR was discontinue at this time until Pitocin is complete so that the total amount of IV fluids infusing at this time is 125cc/hr. Will restart LR at 75cc/hr once the Pitocin is complete.
--- NOTE | 2023-05-19 22:30 | PC.NURSE ---
Pt has bedside commode at the bedside, told to call out for assistance up to the commode. Verbalizes understanding.
[2023-05-19] MEDS: ACETAMINOPHEN 325 MG TABLET 650 MG PO (22:32)
[2023-05-20 03:00] VITALS: BP 126/72; PULSE 86; RESP 16; TEMP 36.8; O2SAT 98
[2023-05-20 05:18] LABS: Hematocrit 34.4 % (37.0-47.0); Hemoglobin 11.3 g/dL (12.0-15.0)
[2023-05-20 05:31] LABS: Alanine Aminotransferase 13 U/L (6-35); Albumin Level 2.9 g/dL (3.5-5.1); Alkaline Phosphatase 91 U/L (38-126); Anion Gap 3 mmol/L (4-12); Aspartate Amino Transferase 30 U/L (14-36); Bilirubin,Total 0.3 mg/dL (0.2-1.3); Blood Urea Nitrogen 8 mg/dL (7-17); Calcium 7.6 mg/dL (8.4-10.2); Carbon Dioxide 23 mmol/L (22-30); Chloride 105 mmol/L (98-107); Estimated CRCL calculation 146 ml/min; Estimated Glomerular Filt Rate > 60; Glucose 258 mg/dL (65-110); Potassium 3.7 mmol/L (3.4-5.0); Sodium 131 mmol/L (137-145)
--- NOTE | 2023-05-20 06:46 | PM.OBPNVD ---
OB - PN: Subj Subjective Date/time seen: 05/20/23 06:46 Narrative: PPD#1 Leticia reports doing well today. 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 Her pain is controlled. She is tolerating regular diet, voiding, passing gas, and ambulating without issues. She is breast and bottle feeding. Still on magnesium; BPs mild to moderate range; no symptoms of pre-eclampsia. Glucose was very elevated in her CMP this morning (258). OB - PN: Obj Data Labs 05/20/23 04:39 05/20/23 04:39 Labs: Laboratory Results - last 24 hr 05/19/23 05/19/23 05/19/23 06:33 08:21 09:24 Hgb Hct Sodium 134 L Potassium 4.0 Chloride 107 Carbon Dioxide 19 L Anion Gap 8 BUN 9 Creatinine 0.40 L Estim Creat Clear Calc 146 Estimated GFR > 60 Glucose 107 POC Capillary Glucose 178 H 164 H Uric Acid 5.1 Calcium 9.5 Total Bilirubin 0.3 AST 30 ALT 15 Alkaline Phosphatase 113 Total Protein 7.0 Albumin 3.8 RPR Non-reactive Blood Type B Positive Antibody Screen Negative 05/19/23 05/19/23 05/19/23 11:37 13:52 15:43 Hgb Hct Sodium Potassium Chloride Carbon Dioxide Anion Gap BUN Creatinine Estim Creat Clear Calc Estimated GFR Glucose POC Capillary Glucose 142 H 95 85 Uric Acid Calcium Total Bilirubin AST ALT Alkaline Phosphatase Total Protein Albumin RPR Blood Type Antibody Screen 05/19/23 05/20/23 20:59 04:39 Hgb 11.3 L Hct 34.4 L Sodium 131 L Potassium 3.7 Chloride 105 Carbon Dioxide 23 Anion Gap 3 L BUN 8 Creatinine 0.40 L Estim Creat Clear Calc 146 Estimated GFR > 60 Glucose 258 H POC Capillary Glucose 119 H Uric Acid Calcium 7.6 L Total Bilirubin 0.3 AST 30 ALT 13 Alkaline Phosphatase 91 Total Protein 6.0 L Albumin 2.9 L RPR Blood Type Antibody Screen OB - PN A/P Assessment and Plan (1) Pre-eclampsia: Qualifiers: Trimester: third trimester Qualified Code(s): O14.93 - Unspecified pre-eclampsia, third trimester Code(s): O14.90 - Unspecified pre-eclampsia, unspecified trimester Status: Acute (2) Type 2 diabetes mellitus: Qualifiers: Diabetes mellitus oysterman insulin use: unspecified oysterman insulin use status Code(s): E11.9 - Type 2 diabetes mellitus without complications Status: Acute (3) Normal vaginal delivery of second : Code(s): O80 - Encounter for full-term uncomplicated delivery Status: Acute (4) Shoulder dystocia during labor and delivery, delivered: Code(s): O66.0 - Obstructed labor due to shoulder dystocia Status: Acute Plan day: 1 Plan: routine care Comments: - continue magnesium for 24 hours; will start nifedipine 30mg daily due to persistently elevated BPs - Sugars also elevated; will start metformin -- diabetic diet - PO hydration and ambulation encouraged - continue PO pain meds - continue breast feeding Time Spent With Patient Time: Total time spent is greater than 50% in coordination of care (as documented) at patient's floor/unit and/or counseling patient: Review of Systems Constitutional: Constitutional: Denies chills, Denies fever(s) and Denies headache(s) Eyes: Eyes: Denies change in vision ENT: Denies dizziness and Denies headache(s) Cardiovascular: Cardiovascular: Denies chest pain, Denies palpitations and Denies dyspnea Respiratory: Respiratory: Denies cough and Denies dyspnea Gastrointestinal: Gastrointestinal: Denies nausea and Denies vomiting Neurologic: Denies dizziness and Denies headache(s) Endocrine: Endocrine: Denies palpitations Exam Const: General: cooperative, comfortable and no acute distress Orientation/consciousness: patient oriented x3 Resp: Effort & Inspection: normal respiratory effort Auscultation: clear to a
--- NOTE | 2023-05-20 07:30 | WPDANLDPN2 ---
Anes-Prog Note L&D Date/Time: 05/20/23 07:30 Comfortable throughout: labor and delivery Neuraxial method: epidural Epidural/Spinal procedure site: clean & non-tender Neuro status: Neuro function grossly intact. Cardiovascular status: normal Respiratory status: normal Airway patency: baseline Mental status: baseline Post-Op hydration status: normal Vital Signs: Last Vital Signs Temp 36.8 C 05/20/23 03:00 Pulse 86 05/20/23 03:00 Resp 16 05/20/23 03:00 BP 126/72 05/20/23 03:00 Pulse Ox 98 05/20/23 03:00 O2 Del Method Room Air 05/20/23 03:00 Pain score (VAS): 02/18 I/O: Intake & Output 05/19/23 05/19/23 05/20/23 15:59 23:59 07:59 Intake Total 1175 2050 Output Total 1000 1645 900 Balance 175 405 -900 Post-procedural complaints: none Patient feedback: Patient satisfied with anesthetic care.
[2023-05-20] MEDS: NIFEdipine 30 MG TAB.ER.24 PO (07:59)
[2023-05-20] MEDS: DOCUSATE SODIUM 100 MG CAPSULE PO (07:59)
[2023-05-20] MEDS: MULTIVIT/MIN/PREN/FOL AC/IRON TABLET 1 TAB PO (07:59)
[2023-05-20] MEDS: metFORMIN HCL XR 500 MG TAB.SR.24H PO (07:59)
[2023-05-20] MEDS: IBUPROFEN 600 MG TABLET PO ×2 (07:59→19:58)
[2023-05-20 08:00] VITALS: BP 134/78; PULSE 81; RESP 17; TEMP 36.9; O2SAT 100
[2023-05-20 08:10] LABS: Glucose Point of Care 178 mg/dl (65-105)
[2023-05-20] MEDS: INSULIN ASPART (*BKC) 100 UNITS/ML SUB-Q ×2 (08:34→17:04)
[2023-05-20] MEDS: MAGNESIUM SULF 20GM/WATER500ML 500 ML 50 MG IV CONT (10:20)
[2023-05-20] MEDS: LACTATED RINGERS 1,000 ML 75 ML (10:20)
[2023-05-20 11:14] VITALS: BP 154/76; PULSE 74; RESP 16; TEMP 36.3; O2SAT 100
--- NOTE | 2023-05-20 12:59 | PC.NURSE ---
Earlier today the Primary RN reported that mother is not putting her to the breast because in her culture her breast are considered dirty right now and mother declines to initiate pumping. Infant has been bottle fed since . mother's initial intent at the pre-admit appt is to do combination feeding.
[2023-05-20 16:00] VITALS: BP 147/81; PULSE 76; RESP 16; TEMP 36.5
[2023-05-20 16:47] LABS: Glucose Point of Care 150 mg/dl (65-105)
[2023-05-20 18:43] VITALS: BP 149/78; PULSE 78; RESP 18; TEMP 36.5; O2SAT 99
--- NOTE | 2023-05-20 21:23 | PC.NURSE ---
2120- [place] provided for patient to use to collect soiled diapers for weighing to keep track of infants I/O while on D10. Educated patient on importance of keeping wet diapers for measuring and that nurse will collect them for weight. Patient verbalized understanding as well as FOB.
[2023-05-20 23:48] VITALS: BP 138/52; PULSE 78; RESP 18; TEMP 36.3; O2SAT 99
[2023-05-21] VITALS (7 sets, daily range): BP systolic 120–150; BP diastolic 67–93; PULSE 78–114; RESP 16–18; TEMP 35.9–36.8; O2SAT 97–100
[2023-05-21] MEDS: ACETAMINOPHEN 325 MG TABLET 650 MG PO (00:31)
[2023-05-21] MEDS: metFORMIN HCL XR 500 MG TAB.SR.24H PO (06:58)
[2023-05-21] MEDS: DOCUSATE SODIUM 100 MG CAPSULE PO (06:58)
[2023-05-21] MEDS: NIFEdipine 30 MG TAB.ER.24 60 MG PO (06:58)
[2023-05-21] MEDS: MULTIVIT/MIN/PREN/FOL AC/IRON TABLET 1 TAB PO (06:58)
[2023-05-21] MEDS: IBUPROFEN 600 MG TABLET PO ×2 (06:58→14:45)
[2023-05-21] MEDS: INSULIN ASPART (*BKC) 100 UNITS/ML SUB-Q ×2 (07:00→14:41)
--- NOTE | 2023-05-21 07:13 | P.PNOB_ITS ---
OB - PN: Subj Subjective Date/time seen: 05/21/23 07:13 Narrative: PPD#2 Leticia reports doing well today. 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 Her pain is controlled when taking the medicine; having some cramping. She is tolerating regular diet, voiding, passing gas, and ambulating without issues. She is supplementing. She would like her son circumcised, but he's still on D10. Magnesium was stopped last night at 1800; BPs continue to be elevated. OB - PN: Obj Data Labs 05/20/23 04:39 05/20/23 04:39 Labs: Laboratory Results - last 24 hr 05/20/23 05/20/23 08:04 16:41 POC Capillary Glucose 178 H 150 H OB - PN A/P Assessment and Plan (1) Normal vaginal delivery of second : Code(s): O80 - Encounter for full-term uncomplicated delivery Status: Acute (2) Shoulder dystocia during labor and delivery, delivered: Code(s): O66.0 - Obstructed labor due to shoulder dystocia Status: Acute (3) Pre-eclampsia: Qualifiers: Trimester: third trimester Qualified Code(s): O14.93 - Unspecified pre- eclampsia, third trimester Code(s): O14.90 - Unspecified pre-eclampsia, unspecified trimester Status: Acute (4) Type 2 diabetes mellitus: Qualifiers: Diabetes mellitus half-way insulin use: unspecified termite exterminator insulin use status Code(s): E11.9 - Type 2 diabetes mellitus without complications Status: Acute Plan day: 2 Comments: - s/p magnesium for 24 hours; will increase nifedipine to 60mg daily due to persistently elevated BPs - Sugars also elevated;continue metformin and sliding scale insulin -- diabetic diet - PO hydration and ambulation encouraged - continue PO pain meds - recommend breast feeding q2-3 hr (has not put baby to breast yet, but wants to breast feed) - will continue to monitor; possible d/c home tomorrow Time Spent With Patient Time: Total time spent is greater than 50% in coordination of care (as documented) at patient's floor/unit and/or counseling patient: Review of Systems Constitutional: Constitutional: Denies chills, Denies fever(s) and Denies headache(s) Eyes: Eyes: Denies change in vision ENT: Denies dizziness and Denies headache(s) Cardiovascular: Cardiovascular: Denies chest pain, Denies palpitations and Denies dyspnea Respiratory: Respiratory: Denies cough and Denies dyspnea Gastrointestinal: Gastrointestinal: Denies nausea and Denies vomiting Neurologic: Denies dizziness and Denies headache(s) Endocrine: Endocrine: Denies palpitations Exam Const: General: cooperative, comfortable and no acute distress Orientation /consciousness: patient oriented x3 Resp: Effort & Inspection: normal respiratory effort Auscultation: clear to auscultation bilaterally Cardio: Rate: regular rate GI: Inspection: non-distended GI Palp: No abdominal tenderness and Yes Soft to palpation Auscultation: normal bowel sounds : Other: fundus firm Skin: General skin exam: normal color Neuro: General: patient oriented x3 Extrem: General: normal to inspection Psych: Appearance: grossly normal Affect: normal affect Attitude: coope rative
[2023-05-21 07:33] LABS: Glucose Point of Care 146 mg/dl (65-105)
--- NOTE | 2023-05-21 10:50 | PC.NURSE ---
[id number] Introductions were made, then consulted with patient to assess needs related to /milk production. Discussed with mother her?plans to feed?her , the?experience so far, as she has independently latched her infant effectively to her left breast. Mother denies pain. Mother shares her history of her first child successfully without supplementation for 7 months. After self detached there was no misshaping to the left nipple. Mother switches breast and independently latches to her right breast with tenderness that subsides after 60-90 sec after mother takes 10 deep breaths for relaxation. Reviewed signs of effective with swallowing and the risks of bottle feeding in the early days. Mother states she was unable to breastfeed initially because her breast were dirty but now she has showered and can breastfeed. Encouraged understanding the benefits of skin to skin, responding to feeding cues, frequencies of feeding 8-12 times in 24 hours (approximately 2-3 hours), duration of feedings, milk production, intake/output feeding sheet, nipple care reviewed with optimal latch, good positioning and using clean hands when touching her breast. Resources used to facilitate learning were used from the visual handout/ tool/mom and baby guide. Resources provided for inpatient and outpatient services with the feeding sheet, mom/baby guide and name written on the communication board. Parents voiced understanding of information and will call if there is a request for assistance. Reported to the Primary RN.
[2023-05-21 14:55] LABS: Glucose Point of Care 144 mg/dl (65-105)
--- NOTE | 2023-05-21 17:10 | PC.NURSE ---
Addendum entered by Becca Amador RN [facility] 05/21/23 20:03: 1910- Original Note: 1710- Patient removed urine hat from toilet and placed in trash can. Educated patient on importance of keeping hat in toilet for us to measure voids for accurate I/O and replaced hat. Patient stated understanding.
[2023-05-21 19:19] LABS: Glucose Point of Care 95 mg/dl (65-105)
[2023-05-22] VITALS (10 sets, daily range): BP systolic 113–156; BP diastolic 57–100; PULSE 79–93; RESP 16–18; TEMP 36.7–37.2; O2SAT 98–99
[2023-05-22] MEDS: IBUPROFEN 600 MG TABLET PO ×2 (03:46→19:18)
[2023-05-22] MEDS: LABETALOL HCL 100 MG TABLET 200 MG PO ×3 (03:54→20:29)
[2023-05-22] MEDS: NIFEdipine 30 MG TAB.ER.24 60 MG PO (08:34)
[2023-05-22] MEDS: metFORMIN HCL XR 500 MG TAB.SR.24H PO (08:35)
[2023-05-22] MEDS: MULTIVIT/MIN/PREN/FOL AC/IRON TABLET 1 TAB PO (08:35)
[2023-05-22 09:29] LABS: Glucose Point of Care 172 mg/dl (65-105)
[2023-05-22] MEDS: INSULIN ASPART (*BKC) 100 UNITS/ML SUB-Q (09:35)
--- NOTE | 2023-05-22 14:22 | PC.NURSE ---
Pt did not call for blood sugar check before eating lunch. PC blood sugar was 208.
[2023-05-22 14:38] LABS: Glucose Point of Care 208 mg/dl (65-105)
[2023-05-22 18:08] LABS: Glucose Point of Care 103 mg/dl (65-105)
[2023-05-23 04:33] VITALS: BP 116/73
[2023-05-23 07:30] VITALS: BP 122/66; PULSE 87; RESP 16; TEMP 36.4; O2SAT 100
[2023-05-23 07:53] LABS: Glucose Point of Care 151 mg/dl (65-105)
[2023-05-23] MEDS: MULTIVIT/MIN/PREN/FOL AC/IRON TABLET 1 TAB PO (08:11)
[2023-05-23 08:12] VITALS: PULSE 87
[2023-05-23] MEDS: IBUPROFEN 600 MG TABLET PO (08:12)
[2023-05-23] MEDS: metFORMIN HCL XR 500 MG TAB.SR.24H PO (08:12)
[2023-05-23] MEDS: NIFEdipine 30 MG TAB.ER.24 60 MG PO (08:12)
[2023-05-23] MEDS: LABETALOL HCL 100 MG TABLET 200 MG PO (08:12)
[2023-05-23] MEDS: INSULIN ASPART (*BKC) 100 UNITS/ML SUB-Q (08:13)
[2023-05-23 13:16] LABS: Glucose Point of Care 114 mg/dl (65-105)
--- NOTE | 2023-05-23 15:15 | PC.NURSE ---
Patient viewed the discharge video Mother & Baby Care, The First Two Weeks . Patient was given the opportunity and encouraged to ask questions. Patient verbalized understanding of information shared and has been given the mother/baby guide for home reference.
--- NOTE | 2023-05-25 07:30 | PM.OBDSVD ---
DS: Admitting Diagnosis Discharge Date 05/23/23 Admitting Diagnosis Pre-eclampsia w/o severe features Class B DM -- uncontrolled, refused medications Advanced maternal age Non-compliant with care DS: Discharge Diagnosis Discharge Diagnosis (1) Normal vaginal delivery of second : Code(s): O80 - Encounter for full-term uncomplicated delivery Status: Acute (2) Shoulder dystocia during labor and delivery, delivered: Code(s): O66.0 - Obstructed labor due to shoulder dystocia Status: Acute (3) Pre-eclampsia, severe: Qualifiers: Trimester: third trimester Qualified Code(s): O14.13 - Severe pre-eclampsia, third trimester Code(s): O14.10 - Severe pre-eclampsia, unspecified trimester Status: Acute (4) Type 2 diabetes mellitus: Qualifiers: Diabetes mellitus chcf insulin use: unspecified chcf insulin use status Code(s): E11.9 - Type 2 diabetes mellitus without complications Status: Acute OB - DS: Summary OB Procedures : NST, PIH Mgmt and Ultrasound OB Procedures Intrapartum: Spontaneous Vag Delivery OB Procedures: : Other (magnesium sulfate) Peripartum Data Infant Delivery Method: Natural Vaginal Laceration Description: None Episiotomy description: None complications: none [place] 1: Gender: Male Status at Discharge Functional status at discharge: independent ambulation Overall status at discharge: patient is back to baseline Time Spent with Patient Time attestation: Total time spent providing and/or coordinating discharge services: Exam Const: General: cooperative, healthy appearing, comfortable and no acute distress Orientation/consciousness: patient oriented x3 Resp: Effort & Inspection: normal respiratory effort Auscultation: clear to auscultation bilaterally Cardio: Rate: regular rate GI: Inspection: non-distended GI Palp: No abdominal tenderness and Yes Soft to palpation Auscultation: normal bowel sounds : Other: fundus firm Skin: General skin exam: normal color Neuro: General: patient oriented x3 Extrem: General: normal to inspection Psych: Appearance: grossly normal Affect: normal affect Attitude: cooperative DS: Data Data Completed and Pending Pending studies at discharge: Pending at discharge 05/19/23 18:00 Surgical [PTH] Routine Labs on day of discharge: Labs from last 24 hours 05/21/23 05/21/23 05/21/23 18:19 14:30 06:57 POC Capillary Glucose 95 144 H 146 H Discharge Plan Discharge Attending physician on discharge: Britt Evans Discharging Clinician: Ivan Jarrett Patient Disposition: Home, Self-Care Activity: may shower and pelvic rest Diet: diabetic Discharge Instructions: Education: Mom and Baby Guide Given to: Mother Follow-Up: Call your delivering provider's office for an appointment to be seen in: Call for appointment Mom and baby should come to the [facility] for the follow-up appointment. Appointment Date/Time: May 25, 2023 at 9:00 am What to expect at your follow-up visit: Physical Assessment Call [phone] if you are unable to keep your appointment time. BREAST CARE: * Wear a snug supportive bra. * For engorgement discomfort: Breast Feeding: * Apply warm moist washcloths * Express milk as needed to relieve engorgement * Wear loose clothing Bottle Feeding: * May apply ice packs * For sore nipples: * Identify correct latch-on * Apply warm moist washcloths before and after nursing * Air dry nipples after nursing * May apply Lansinoh cream to nipples EPISIOTOMY/PERINEAL CARE: * Until bleeding stops, use your samson bottle after urinating * Change your pad frequently throughout the day * You may take sitz baths several times a day (fill your bathtub with warm water and so
[2023-05-25 09:11] VITALS: BP 143/83; PULSE 89; RESP 18; TEMP 36.9; O2SAT 100
== END 2023-05-23 16:00 | disposition home or self-care (01) | DRG 807 ==
LOC: ANHLDR 06:06 → ANHOB2 05-21 20:46 → ANHLDR 05-26 08:06 → ANHOB2 05-26 08:06
PROVIDERS: Admitting Provider Obstetrics & Gynecology; Visit Provider Student in an Organized Health Care Education/Training Program
DX: O14.14 Severe pre-eclampsia complicating childbirth (principal); Z37.0 Single live birth; Z3A.37 37 weeks gestation of pregnancy; O66.0 Obstructed labor due to shoulder dystocia; O24.12 Pre-existing type 2 diabetes mellitus, in childbirth; O75.81 Maternal exhaustion complicating labor and delivery
CPT/HCPCS: 36415; 80053; 82948; 84550; 85014; 85018; 85025; 86592; 86850; 86900; 86901; 88307; A9270; J1815; J2590; J2795; J3475; J7120

== ENCOUNTER 2023-07-15 08:58 | Outpatient (CLI) | payer BC, MEDICAID, SELFPAY ==
[2023-07-15 10:43] LABS: Beta HCG Quantitative < 2.39 mIU/ML
== END 2023-07-15 08:59 | disposition home or self-care (01) ==
LOC: ANHLAB 09:00
PROVIDERS: Visit Provider Obstetrics & Gynecology
DX: N92.6 Irregular menstruation, unspecified (principal)
CPT/HCPCS: 36415; 84702